=== PATIENT | female | born 1985 | race Caucasian/White ===

== ENCOUNTER 2017-05-24 17:16 | Observation (INO) | payer OTHER ==
[~2017-05-24] VITALS: Ht 154 cm; Wt 80.7 kg
[2017-05-24 17:38] VITALS: BP 126/84
[2017-05-24] MEDS ORDERED: PREN1TAB80 PO (18:06)
[2017-05-24 18:41] LABS: BASOPHILS % (AUTO) 0.1 % (0.0-2.0); EOSINOPHILS % (AUTO) 0.7 % (1.0-6.0); HEMATOCRIT 40.2 % (36-46); HEMOGLOBIN 13.7 g/dL (12.0-16.0); LYMPHOCYTES % (AUTO) 20.5 % (22.0-44.0); MEAN CORPUSCULAR HEMOGLOBIN 29.3 pg (26.0-34.0); MEAN CORPUSCULAR HGB CONC 34.1 G/dL (31.0-37.0); MEAN CORPUSCULAR VOLUME 86 fL (80-100); MONOCYTES # (AUTO) 1.2 K/uL (0.1-1.0); MONOCYTES % (AUTO) 12.7 % (2.0-9.0); NEUTROPHILS # (AUTO) 6.4 K/uL (1.8-7.7); PLATELET COUNT (AUTO) 178 K/uL (150-450); RED BLOOD CELL COUNT(AUTO) 4.67 MIL/uL (4.00-5.20); RED CELL DISTRIBUTION WIDTH 13.8 % (11.5-14.5)
[2017-05-24 18:50] LABS: ANION GAP 9 mmol/L (8-16); CALCIUM, TOTAL 8.9 mg/dL (8.8-10.5); CARBON DIOXIDE 23 mmol/L (22-29); CHLORIDE 105 mmol/L (98-107); CREATININE 0.66 mg/dL (0.60-1.30); GLOMERULAR FILTR. RATE CALC > 60 mL/min (>60); GLUCOSE,RANDOM 88 mg/dL (70-110); POTASSIUM 4.1 mmol/L (3.5-5.1); SODIUM SERUM 137 mmol/L (136-145); UREA NITROGEN, BLOOD 15 mg/dL (7-18)
[2017-05-24 18:57] LABS: ALANINE AMINOTRANSFERASE 32 U/L (12-78); ALBUMIN 2.4 g/dL (3.4-5.0); ALKALINE PHOSPHATASE 127 U/L (46-116); ASPARTATE AMINOTRANSFERASE 32 U/L (15-37); BILIRUBIN,TOTAL 0.2 mg/dL (0.1-1.0); TOTAL PROTEIN, SERUM 6.2 g/dL (6.4-8.2)
[2017-05-24 18:59] LABS: HEMOGLOBIN A1C 6.2 % (4.5-6.2)
[2017-05-24] MEDS: INSULIN NPH, HUMAN ISOPHANE 100 UNITS/ML SQ SCH (21:16)
[2017-05-24 21:28] LABS: GLUCOMETER DEV NAME(LOC) 4S 8; GLUCOSE,POINT OF CARE 114 MG/DL (70-110)
[2017-05-25 06:33] LABS: GLUCOMETER DEV NAME(LOC) 4S 8; GLUCOSE,POINT OF CARE 99 MG/DL (70-110)
[2017-05-25 10:02] LABS: GLUCOMETER DEV NAME(LOC) 4S 8; GLUCOSE,POINT OF CARE 136 MG/DL (70-110)
[2017-05-25] MEDS: INSULIN NPH, HUMAN ISOPHANE 100 UNITS/ML SQ SCH ×2 (11:54→21:27)
[2017-05-25 13:43] LABS: GLUCOMETER DEV NAME(LOC) 4S 8; GLUCOSE,POINT OF CARE 125 MG/DL (70-110)
[2017-05-25 13:43] LABS: GLUCOMETER DEV NAME(LOC) 4S 8; GLUCOSE,POINT OF CARE 89 MG/DL (70-110)
[2017-05-25 19:23] LABS: GLUCOMETER DEV NAME(LOC) 4S 8; GLUCOSE,POINT OF CARE 135 MG/DL (70-110)
[2017-05-25 19:23] LABS: GLUCOMETER DEV NAME(LOC) 4S 8; GLUCOSE,POINT OF CARE 95 MG/DL (70-110)
[2017-05-25 20:44] LABS: TPROTEIN TIMED,URINE 18 mg/dL
[2017-05-25 20:45] LABS: COLLECTION TIME,URINE 24 HR; TPROTEIN URINE, 24HRS COLL 198 mg/24Hr (0-165)
[2017-05-25] MEDS ORDERED: URSODIOL 300 MG CAPSULE PO SCH (21:00)
[2017-05-25 21:38] LABS: GLUCOMETER DEV NAME(LOC) 4S 8; GLUCOSE,POINT OF CARE 79 MG/DL (70-110)
== END 2017-05-25 22:23 | disposition home or self-care (01) ==
LOC: 4S 17:16
PROVIDERS: ADMIT Obstetrics & Gynecology; ATTEND Obstetrics & Gynecology
DX: O24.410 Gestational diabetes mellitus in pregnancy, diet controlled (principal); Z3A.34 34 weeks gestation of pregnancy
CPT/HCPCS: 36415; 59025; 80053; 81050; 82239; 82962 ×2; 83036; 84156; 85025; 96372 ×2; G0378 ×2; J1815 ×2

== ENCOUNTER 2017-05-29 17:05 | Observation (INO) | payer OTHER ==
[~2017-05-29] VITALS: Ht 154 cm; Wt 79.4 kg
[~2017-05-29 17:05] MED LIST: PREN1TAB80 PO
[2017-05-29] MEDS: BETAMETHASONE SOLUSPAN 6 MG/ML 5 ML VIAL IM ONE (18:11)
== END 2017-05-29 18:20 | disposition home or self-care (01) ==
LOC: 4S 17:05
PROVIDERS: ADMIT Obstetrics & Gynecology; ATTEND Obstetrics & Gynecology
DX: Z34.83 Encounter for supervision of other normal pregnancy, third trimester (principal); Z3A.35 35 weeks gestation of pregnancy
CPT/HCPCS: 59025; 96372; G0378; J0702

== ENCOUNTER 2017-05-30 18:32 | Observation (INO) | payer OTHER ==
[~2017-05-30] VITALS: Ht 152.4 cm; Wt 79.8 kg
[2017-05-30] MEDS: BETAMETHASONE SOLUSPAN 6 MG/ML 5 ML VIAL IM ONE (18:56)
== END 2017-05-30 19:15 | disposition home or self-care (01) ==
LOC: 4S 18:32
PROVIDERS: ADMIT Obstetrics & Gynecology; ATTEND Obstetrics & Gynecology
DX: Z34.83 Encounter for supervision of other normal pregnancy, third trimester (principal); Z3A.34 34 weeks gestation of pregnancy
CPT/HCPCS: 59025; 96372; G0378; J0702

== ENCOUNTER 2017-06-01 17:04 | Observation (INO) | payer OTHER ==
[2017-06-01] MEDS ORDERED: URSO300C4 PO (17:19)
[2017-06-01 17:26] VITALS: BP 138/75
[2017-06-01 17:38] LABS: BASOPHILS % (AUTO) 0.2 % (0.0-2.0); EOSINOPHILS % (AUTO) 0.3 % (1.0-6.0); HEMATOCRIT 41.2 % (36-46); HEMOGLOBIN 13.8 g/dL (12.0-16.0); LYMPHOCYTES # (AUTO) 2.9 K/uL (1.0-4.8); LYMPHOCYTES % (AUTO) 20.2 % (22.0-44.0); MEAN CORPUSCULAR HGB CONC 33.6 G/dL (31.0-37.0); MEAN CORPUSCULAR VOLUME 86 fL (80-100); MONOCYTES # (AUTO) 1.9 K/uL (0.1-1.0); NEUTROPHILS # (AUTO) 9.5 K/uL (1.8-7.7); NEUTROPHILS % (AUTO) 66.3 % (40.0-70.0); PLATELET COUNT (AUTO)-OB 207 K/uL (150-450); RED BLOOD CELL COUNT(AUTO) 4.77 MIL/uL (4.00-5.20); RED CELL DISTRIBUTION WIDTH 14.4 % (11.5-14.5)
[2017-06-01 17:39] LABS: ANION GAP 15 mmol/L (8-16); CALCIUM, TOTAL 8.6 mg/dL (8.8-10.5); CARBON DIOXIDE 18 mmol/L (22-29); CHLORIDE 104 mmol/L (98-107); CREATININE 0.54 mg/dL (0.60-1.30); GLOMERULAR FILTR. RATE CALC > 60 mL/min (>60); GLUCOSE,RANDOM 98 mg/dL (70-110); POTASSIUM 4.1 mmol/L (3.5-5.1); SODIUM SERUM 137 mmol/L (136-145); UREA NITROGEN, BLOOD 22 mg/dL (7-18)
[2017-06-01 17:43] LABS: ALANINE AMINOTRANSFERASE 51 U/L (12-78); ALBUMIN 2.7 g/dL (3.4-5.0); ALKALINE PHOSPHATASE 136 U/L (46-116); ASPARTATE AMINOTRANSFERASE 37 U/L (15-37); BILIRUBIN,TOTAL 0.3 mg/dL (0.1-1.0); TOTAL PROTEIN, SERUM 6.5 g/dL (6.4-8.2)
[2017-06-01] MEDS: RINGERS SOLUTION,LACTATED 1,000 ML IV SCH ×2 (17:49→18:46)
[2017-06-01] MEDS ORDERED: INSNPH SQ (18:01)
[2017-06-01 21:22] LABS: GLUCOMETER DEV NAME(LOC) 4S 8; GLUCOSE,POINT OF CARE 118 MG/DL (70-110)
[2017-06-01] MEDS: [UNRECOGNIZED DRUG - OTHER] PO SCH (22:12)
[2017-06-01] MEDS: INSULIN NPH, HUMAN ISOPHANE 100 UNITS/ML SQ SCH (23:50)
[2017-06-01 23:57] LABS: GLUCOMETER DEV NAME(LOC) 4S 8; GLUCOSE,POINT OF CARE 138 MG/DL (70-110)
[2017-06-02] MEDS: RINGERS SOLUTION,LACTATED 1,000 ML IV SCH (03:05)
[2017-06-02 06:53] LABS: GLUCOMETER DEV NAME(LOC) 4S 8; GLUCOSE,POINT OF CARE 78 MG/DL (70-110)
[2017-06-02] MEDS: INSULIN NPH, HUMAN ISOPHANE 100 UNITS/ML SQ SCH (08:10)
[2017-06-02] MEDS: [UNRECOGNIZED DRUG - OTHER] PO SCH (08:52)
[2017-06-02 09:47] LABS: GLUCOMETER DEV NAME(LOC) 4S 8; GLUCOSE,POINT OF CARE 129 MG/DL (70-110)
== END 2017-06-02 13:05 | disposition home or self-care (01) ==
LOC: 4S 17:04
PROVIDERS: ADMIT Obstetrics & Gynecology; ATTEND Obstetrics & Gynecology
DX: O36.8130 Decreased fetal movements, third trimester, not applicable or unspecified (principal); O24.414 Gestational diabetes mellitus in pregnancy, insulin controlled; Z3A.35 35 weeks gestation of pregnancy
CPT/HCPCS: 36415; 59025 ×2; 80053; 82962 ×2; 85025; 96360; 96361 ×2; 96372 ×2; G0378; J1815 ×2; J7120 ×2; Z7610 ×2

== ENCOUNTER 2017-06-04 09:04 | Observation (INO) | payer OTHER ==
[~2017-06-04 09:04] MED LIST changes: +INSNPH SQ; +URSO300C4 PO
[2017-06-04 09:23] VITALS: BP 136/77
== END 2017-06-04 11:40 | disposition home or self-care (01) ==
LOC: 4S 09:04
PROVIDERS: ADMIT Obstetrics & Gynecology; ATTEND Obstetrics & Gynecology
DX: O24.414 Gestational diabetes mellitus in pregnancy, insulin controlled (principal); O32.1XX0 Maternal care for breech presentation, not applicable or unspecified; Z3A.35 35 weeks gestation of pregnancy
CPT/HCPCS: 59025; G0378

== ENCOUNTER 2017-06-19 11:59 | Inpatient (IN) | payer OTHER ==
[~2017-06-19] VITALS: Ht 152.4 cm; Wt 80.7 kg
[2017-06-19] MEDS ORDERED: RINGERS SOLUTION,LACTATED 1,000 ML IV ONE (12:03)
[2017-06-19] MEDS ORDERED: METOCLOPRAMIDE HCL 5 MG/ML 2 ML VIAL IVP ONE (12:15)
[2017-06-19] MEDS ORDERED: CITRIC ACID/SODIUM CITRATE 30 ML SOLUTION UDCUP PO ONE (12:15)
[2017-06-19 13:29] LABS: BASOPHILS % (AUTO) 0.2 % (0.0-2.0); EOSINOPHILS % (AUTO) 0.9 % (1.0-6.0); HEMATOCRIT 39.9 % (36-46); HEMOGLOBIN 13.9 g/dL (12.0-16.0); LYMPHOCYTES # (AUTO) 1.8 K/uL (1.0-4.8); LYMPHOCYTES % (AUTO) 24.5 % (22.0-44.0); MEAN CORPUSCULAR HEMOGLOBIN 30.4 pg (26.0-34.0); MEAN CORPUSCULAR HGB CONC 34.9 G/dL (31.0-37.0); MEAN CORPUSCULAR VOLUME 87 fL (80-100); MONOCYTES # (AUTO) 0.9 K/uL (0.1-1.0); MONOCYTES % (AUTO) 12.9 % (2.0-9.0); NEUTROPHILS # (AUTO) 4.5 K/uL (1.8-7.7); NEUTROPHILS % (AUTO) 61.5 % (40.0-70.0); PLATELET COUNT (AUTO)-OB 144 K/uL (150-450); RED BLOOD CELL COUNT(AUTO) 4.58 MIL/uL (4.00-5.20); RED CELL DISTRIBUTION WIDTH 14.4 % (11.5-14.5)
[2017-06-19 14:05] VITALS: BP 126/80
[2017-06-19 14:18] LABS: GLUCOMETER DEV NAME(LOC) 4S 8; GLUCOSE,POINT OF CARE 83 MG/DL (70-110)
[2017-06-19] MEDS ORDERED: MORPHINE SULFATE/PF 0.5 MG/ML 10 ML AMP ONE (16:23)
[2017-06-19] MEDS ORDERED: FentaNYL CITRATE-PF 100 MCG/2 ML VIAL ONE (16:23)
[2017-06-19] MEDS ORDERED: GUM MASTIC/STORAX/MSAL/ALCOHOL LIQUID 0.67 ML VIAL TP ONE (17:27)
[2017-06-19] MEDS ORDERED: NALBUPHINE HCL 10 MG/ML VIAL IVP PRN ×3 (17:30→17:45)
[2017-06-19] MEDS ORDERED: FentaNYL CITRATE-PF 100 MCG/2 ML VIAL IVP PRN ×4 (17:30→17:45)
[2017-06-19] MEDS ORDERED: ONDANSETRON HCL 4 MG/2 ML VIAL IVP PRN ×2 (17:30→17:45)
[2017-06-19] MEDS ORDERED: DEXAMETHASONE SOD PHOS 4 MG/ML VIAL IVP PRN (17:30)
[2017-06-19] MEDS ORDERED: MORPHINE SULFATE 10 MG/ML SYRINGE IVP PRN ×2 (17:30→17:45)
[2017-06-19] MEDS ORDERED: MEPERIDINE-PF 25 MG/ML SYRINGE IVP PRN (17:30)
[2017-06-19] MEDS ORDERED: DiphenhydrAMINE HCL 50 MG/ML VIAL IVP PRN ×2 (17:30→17:45)
[2017-06-19] MEDS ORDERED: MORPHINE SULFATE 2 MG/ML SYRINGE IVP PRN ×2 (17:30)
[2017-06-19] MEDS ORDERED: DiphenhydrAMINE HCL 50 MG/ML VIAL IM PRN (17:30)
[2017-06-19] MEDS ORDERED: NALOXONE HCL 0.4 MG/ML VIAL IVP PRN (17:45)
[2017-06-19] MEDS ORDERED: OxyCODONE HCL/ACETAMINOPHEN 5-325 MG TABLET PO PRN (18:30)
[2017-06-19] MEDS ORDERED: LANOLIN 7 GM OINTMENT TP PRN (18:30)
[2017-06-19] MEDS ORDERED: IBUPROFEN 600 MG TABLET PO PRN (18:30)
[2017-06-19] MEDS ORDERED: OXYGEN THERAPY IH SCH ×4 (20:00)
[2017-06-19] MEDS: RINGERS SOLUTION,LACTATED 1,000 ML IV SCH (20:45)
[2017-06-19] MEDS: KETOROLAC TROMETHAMINE 30 MG/ML VIAL IVP SCH (23:33)
[2017-06-20] MEDS: RINGERS SOLUTION,LACTATED 1,000 ML IV SCH (04:48)
[2017-06-20] MEDS: KETOROLAC TROMETHAMINE 30 MG/ML VIAL IVP SCH (05:35)
[2017-06-20] MEDS ORDERED: DiphenhydrAMINE HCL 50 MG/ML VIAL IVP ONE (05:48)
[2017-06-20] MEDS ORDERED: EPHEDrine SULFATE 50 MG/ML VIAL IM ONE (05:48)
[2017-06-20] MEDS ORDERED: KETOROLAC TROMETHAMINE 60 MG/2 ML VIAL IM ONE (05:48)
[2017-06-20] MEDS ORDERED: OXYTOCIN 10 UNITS/ML VIAL IM ONE (05:48)
[2017-06-20] MEDS ORDERED: 0.9% SODIUM CHLORIDE 10 ML VIAL IVP ONE (05:48)
[2017-06-20 06:22] LABS: BASOPHILS % (AUTO) 0.2 % (0.0-2.0); EOSINOPHILS % (AUTO) 0.8 % (1.0-6.0); HEMATOCRIT 37.6 % (36-46); HEMOGLOBIN 13.3 g/dL (12.0-16.0); LYMPHOCYTES # (AUTO) 2.3 K/uL (1.0-4.8); LYMPHOCYTES % (AUTO) 20.9 % (22.0-44.0); MEAN CORPUSCULAR HEMOGLOBIN 30.9 pg (26.0-34.0); MEAN CORPUSCULAR HGB CONC 35.4 G/dL (31.0-37.0); MEAN CORPUSCULAR VOLUME 87 fL (80-100); MONOCYTES # (AUTO) 0.8 K/uL (0.1-1.0); MONOCYTES % (AUTO) 7.6 % (2.0-9.0); NEUTROPHILS # (AUTO) 7.8 K/uL (1.8-7.7); NEUTROPHILS % (AUTO) 70.5 % (40.0-70.0); PLATELET COUNT (AUTO)-OB 146 K/uL (150-450); RED BLOOD CELL COUNT(AUTO) 4.31 MIL/uL (4.00-5.20); RED CELL DISTRIBUTION WIDTH 14.4 % (11.5-14.5)
[2017-06-20 08:11] LABS: ANION GAP 8 mmol/L (8-16); CALCIUM, TOTAL 8.4 mg/dL (8.8-10.5); CARBON DIOXIDE 22 mmol/L (22-29); CHLORIDE 105 mmol/L (98-107); GLOMERULAR FILTR. RATE CALC > 60 mL/min (>60); GLUCOSE,RANDOM 73 mg/dL (70-110); POTASSIUM 4.6 mmol/L (3.5-5.1); SODIUM SERUM 135 mmol/L (136-145); UREA NITROGEN, BLOOD 17 mg/dL (7-18)
[2017-06-20 08:17] LABS: ALANINE AMINOTRANSFERASE 26 U/L (12-78); ALBUMIN 1.9 g/dL (3.4-5.0); ALKALINE PHOSPHATASE 158 U/L (46-116); ASPARTATE AMINOTRANSFERASE 38 U/L (15-37); BILIRUBIN,TOTAL 0.2 mg/dL (0.1-1.0); TOTAL PROTEIN, SERUM 5.3 g/dL (6.4-8.2)
[2017-06-20] MEDS: SENNA/DOCUSATE SODIUM 187-50 MG TABLET PO SCH ×2 (09:05→21:35)
[2017-06-20] MEDS: MAGNESIUM HYDROXIDE SUSPENSION 30 ML UDCUP PO SCH ×2 (09:05→21:35)
[2017-06-20] MEDS: IBUPROFEN 600 MG TABLET PO PRN (18:39)
[2017-06-21] MEDS: IBUPROFEN 600 MG TABLET PO PRN ×3 (03:34→21:07)
[2017-06-21 07:13] LABS: BASOPHILS % (AUTO) 0.1 % (0.0-2.0); EOSINOPHILS % (AUTO) 0.7 % (1.0-6.0); HEMATOCRIT 35.2 % (36-46); HEMOGLOBIN 12.5 g/dL (12.0-16.0); LYMPHOCYTES # (AUTO) 1.4 K/uL (1.0-4.8); LYMPHOCYTES % (AUTO) 12.2 % (22.0-44.0); MEAN CORPUSCULAR HEMOGLOBIN 30.8 pg (26.0-34.0); MEAN CORPUSCULAR HGB CONC 35.6 G/dL (31.0-37.0); MEAN CORPUSCULAR VOLUME 87 fL (80-100); MONOCYTES # (AUTO) 0.9 K/uL (0.1-1.0); MONOCYTES % (AUTO) 7.8 % (2.0-9.0); NEUTROPHILS # (AUTO) 8.8 K/uL (1.8-7.7); NEUTROPHILS % (AUTO) 79.2 % (40.0-70.0); PLATELET COUNT (AUTO)-OB 167 K/uL (150-450); RED BLOOD CELL COUNT(AUTO) 4.06 MIL/uL (4.00-5.20); RED CELL DISTRIBUTION WIDTH 14.7 % (11.5-14.5)
[2017-06-21] MEDS: OxyCODONE HCL/ACETAMINOPHEN 5-325 MG TABLET PO PRN (14:18)
[2017-06-21] MEDS: MAGNESIUM HYDROXIDE SUSPENSION 30 ML UDCUP PO SCH (21:07)
[2017-06-21] MEDS: SENNA/DOCUSATE SODIUM 187-50 MG TABLET PO SCH (21:08)
[2017-06-22] MEDS: OxyCODONE HCL/ACETAMINOPHEN 5-325 MG TABLET PO PRN (00:08)
[2017-06-22] MEDS: IBUPROFEN 600 MG TABLET PO PRN ×2 (04:00→10:39)
[2017-06-22] MEDS: SENNA/DOCUSATE SODIUM 187-50 MG TABLET PO SCH (08:28)
[2017-06-22] MEDS: MAGNESIUM HYDROXIDE SUSPENSION 30 ML UDCUP PO SCH (08:28)
[2017-06-22] MEDS ORDERED: PERCT PO (09:48)
[2017-06-22] MEDS ORDERED: IBUP-2070 PO (09:49)
[2017-06-22] MEDS ORDERED: DSS100 PO (09:49)
== END 2017-06-22 12:40 | disposition home or self-care (01) | DRG 765 ==
LOC: OBSVTOIN 11:59 → 4S 11:59
PROVIDERS: ADMIT Obstetrics & Gynecology; ATTEND Obstetrics & Gynecology
PROC: 10D00Z1 Extraction of Products of Conception, Low, Open Approach (ICD-10-PCS; principal; 2017-06-19)
DX: O26.62 Liver and biliary tract disorders in childbirth (principal); K83.1 Obstruction of bile duct; Z37.0 Single live birth; O32.1XX0 Maternal care for breech presentation, not applicable or unspecified; Z3A.37 37 weeks gestation of pregnancy
CPT/HCPCS: 82962; 86850; 86900; 86901; 87081; J0690; J1200; J1885; J2274; J2590; J2765; J3010; J3490; J7120